=== PATIENT | female | born 1995 | race Two or more races ===

== ENCOUNTER 2018-12-25 11:36 | Emergency (ER) | payer OTHER ==
[~2018-12-25] VITALS: Ht 149.9 cm; Wt 72.6 kg
[2018-12-25] MEDS ORDERED: RANITIDINE HCL75 MG PO (11:58)
[2018-12-25] MEDS ORDERED: ZOFRAN4 MG PO (11:58)
[2018-12-25] MEDS ORDERED: INTESTINEX680 M1 PO (15:55)
== END 2018-12-25 15:53 | disposition home or self-care (01) ==
LOC: ER 11:36
DX: K52.9 Noninfective gastroenteritis and colitis, unspecified (principal); E86.0 Dehydration